=== PATIENT | male | born 1940 | race Caucasian/White ===

== ENCOUNTER 2018-07-10 18:22 | Emergency (ER) | payer MEDICARE, OTHER ==
[2018-07-10] MEDS ORDERED: Ketorolac Tromethamine 30 MG/ML VIAL ONE (18:38)
[2018-07-10] MEDS ORDERED: Morphine 4 MG/ML VIAL ONE (18:38)
[2018-07-10] MEDS ORDERED: Ondansetron PF 4 MG/2 ML Vial ONE (18:38)
[2018-07-10 19:04] LABS: #Eosinphils 0.1 thou/uL (0.0-0.7); #Monocytes 0.6 thou/uL (0.11-0.59); #Neutrophils 4.2 thou/uL (1.40-6.50); %Basophils 0.6 % (0.0-1.0); %Eosinophils 1.2 % (0.0-10.0); %Lymphocytes 16.8 % (21.0-51.0); %Monocytes 10.4 % (0.0-10.0); Hemoglobin 11.5 g/dL (14.0-18.0); Mean Corpuscular HGB CONC 32.7 g/dL (32.0-36.0); Mean Corpuscular Hemoglobin 31.3 pg (27.0-31.0); Mean Corpuscular Volume 95.7 fL (78.0-98.0); Mean Platelet Volume 7.3 fL (7.4-10.4); Platelet Count 241 thou/uL (130-400); RBC Distribution Width 13.6 % (11.5-14.5); Red Blood Cell (RBC) Count 3.67 mill/uL (4.70-6.10); White Blood Cell (WBC) Count 5.9 thou/uL (4.8-10.8)
[2018-07-10 19:16] LABS: ALT (SGPT) 18 U/L (8-55); AST (SGOT) 30 U/L (5-34); Albumin 3.8 g/dL (3.4-4.8); Alkaline Phosphatase 150 U/L (40-150); Anion Gap 11 mmol/L (10-20); BUN (Urea Nitrogen) 19 mg/dL (8.4-25.7); Bilirubin, Total 0.3 mg/dL (0.2-1.2); Calc. Creatinine Clearance 0 mL/min (70-130); Calcium 8.6 mg/dL (7.8-10.44); Carbon Dioxide 22 mmol/L (23-31); Chloride 112 mmol/L (98-107); Estimated GFR-MDRD 70; Globulin 2.7 g/dL (2.4-3.5); Glucose 124 mg/dL (83-110); Lipase 6 U/L (8-78); Potassium 3.3 mmol/L (3.5-5.1); Protein, Total 6.5 g/dL (5.8-8.1); Sodium 142 mmol/L (136-145)
[2018-07-10 19:51] LABS: Bilirubin Negative (Negative); Blood, Urine Large (Negative); Clarity CLOUDY (Clear); Glucose, Urine (Dipstick) 250 mg/dL (Negative); Leukocyte Moderate (Negative); Nitrite Negative (Negative); Protein, Urine (Dipstick) Negative (Neg-Trace); Specific Gravity, Urine 1.018 (1.002-1.036); Urobilinogen 0.2 mg/dL (0.2-1.0)
[2018-07-10 19:52] LABS: Bacteria/HPF 1+ HPF (None Seen); Hyaline Casts/LPF 0-3 HYALINE CAST LPF (0-3 Hyaline); Pathc Cast-AUWi Flag 0.29 (0-2.49); RBC/HPF GREATER THAN 50-TNTC HPF (0-3); Squamous Epithelial 0-3 HPF (0-3)
--- NOTE | 2018-07-10 20:10 | CT ---
CT ABDOMEN AND PELVIS WITHOUT CONTRAST: History: Groin pain. Comparison: CT 07-12-17 FINDINGS: Lung bases are clear. No pericardial effusion. There appears to be gastrectomy changes. There is a 2 mm calculus superior pole right kidney. There is a mild right sided hydroureteronephrosis due to a pa rtially obstructing 2 x 2 mm calculus right ureterovesicular junction. Mild right sided perinephric s tranding. There is a 2 mm interpolar right renal calculus. There is a large calculus inferior left renal collecting system with casting of the calyx measuring 0 .9 x 0.8 cm. No left sided hydroureteronephrosis. There is suture material around the rectum. No dilated loops of small or large bowel. Moderate stool burden transverse colon. Mild tortuosity of the aorta without aneurysmal dilatation. IMPRESSION: 1. Partially obstructed calculus right distal ureter at the vesicular junction measuring 2 x 2 mm cau sing mild right sided hydroureteronephrosis. 2. 8 x 9 mm calculus inferior pole left renal collecting system. 3. Two separate 2 mm calculi within the right renal collecting system within the upper pole and inter polar region. POS: [facility]
== END 2018-07-10 20:28 | disposition home or self-care (01) ==
LOC: ERS 18:22
DX: N13.2 Hydronephrosis with renal and ureteral calculous obstruction (principal)
CPT/HCPCS: 36415; 74176; 80053; 81003; 81015; 83690; 85025; 87077; 87086; 87186; 96374; 96375; J1885; J2270; J2405

== ENCOUNTER 2018-12-13 19:56 | Observation (INO) | payer MEDICARE, OTHER ==
--- NOTE | 2018-12-13 20:35 | RAD ---
EXAM: XR Shoulder Rt 2 View PROVIDED CLINICAL HISTORY: Pain status post injury COMPARISON: None FINDINGS: Comminuted fracture of the right proximal humerus with mildly displaced greater tuberosity and nondis placed metaphyseal region components. Glenohumeral relationship appears normal. Acromial space appears preserved. Visualized right lung field appears clear. IMPRESSION: Right proximal humeral fracture as above.
[2018-12-13] MEDS ORDERED: Ondansetron PF 4 MG/2 ML Vial ONE (21:17)
[2018-12-13] MEDS ORDERED: Morphine 4 MG/ML VIAL ONE ×2 (21:17→22:42)
--- NOTE | 2018-12-13 21:52 | CT ---
EXAM: CT Brain WO Con PROVIDED CLINICAL HISTORY: Fall COMPARISON: None FINDINGS: Prominence of the lateral ventricles presumably on the basis of central volume loss. Retrocerebellar arachnoid cyst. No evidence for intracranial hemorrhage. No shift of the midline structures. The extracranial soft tissues and osseous structures demonstrate no acute findings. IMPRESSION: No evidence for intracranial hemorrhage or mass effect.
--- NOTE | 2018-12-13 21:54 | CT ---
EXAM: CT cervical spine PROVIDED CLINICAL HISTORY: Fall COMPARISON: None FINDINGS: No evidence for fracture or traumatic subluxation. No prevertebral soft tissue swelling apparent. Vi sualized lung apices appear clear. Degenerative changes are noted. 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 IMPRESSION: No evidence for fracture or traumatic subluxation.
--- NOTE | 2018-12-13 22:16 | RAD ---
EXAM: XR Femur Rt 2 View STANDARD PROVIDED CLINICAL HISTORY: Pain FINDINGS: There is no evidence for fracture or other acute osseous abnormality. Alignment appears anatomic. Aviva nt spaces appear preserved. IMPRESSION: No evidence for an acute osseous abnormality. If there is persistent clinical concern, conservative m anagement and follow-up imaging advised.
--- NOTE | 2018-12-13 22:16 | RAD ---
EXAM: XR Hip Rt 2-3 View PROVIDED CLINICAL HISTORY: Pain FINDINGS: There is no evidence for fracture or other acute osseous abnormality. Alignment appears anatomic. Aviva nt spaces appear preserved. IMPRESSION: No evidence for an acute osseous abnormality. If there is persistent clinical concern, conservative m anagement and follow-up imaging advised.
--- NOTE | 2018-12-13 22:17 | RAD ---
EXAM: 3 views right small digit PROVIDED CLINICAL HISTORY: Pain FINDINGS: There is no evidence for fracture or other acute osseous abnormality. Alignment appears anatomic. Aviva nt spaces appear preserved. Degenerative changes are seen. IMPRESSION: No evidence for an acute osseous abnormality. If there is persistent clinical concern, conservative m anagement and follow-up imaging advised.
--- NOTE | 2018-12-13 22:17 | RAD ---
EXAM: XR Elbow Rt 2 View PROVIDED CLINICAL HISTORY: Pain FINDINGS: There is no evidence for fracture or other acute osseous abnormality. Alignment appears anatomic. Aviva nt spaces appear preserved. IMPRESSION: No evidence for an acute osseous abnormality. If there is persistent clinical concern, conservative m anagement and follow-up imaging advised.
[2018-12-13] MEDS ORDERED: HYDROmorphone 0.5 MG/0.5 ML SYRINGE ONE (23:58)
[2018-12-14 00:40] LABS: #Eosinphils 0.1 thou/uL (0.0-0.7); #Lymphocytes 0.8 thou/uL (1.20-3.40); #Monocytes 0.7 thou/uL (0.11-0.59); #Neutrophils 6.9 thou/uL (1.40-6.50); %Basophils 0.5 % (0.0-1.0); %Eosinophils 1.2 % (0.0-10.0); %Lymphocytes 9.6 % (21.0-51.0); %Monocytes 7.8 % (0.0-10.0); Mean Corpuscular HGB CONC 31.5 g/dL (32.0-36.0); Mean Corpuscular Hemoglobin 30.8 pg (27.0-31.0); Mean Corpuscular Volume 97.7 fL (78.0-98.0); Mean Platelet Volume 7.9 fL (7.4-10.4); Platelet Count 247 thou/uL (130-400); RBC Distribution Width 13.5 % (11.5-14.5); Red Blood Cell (RBC) Count 3.91 mill/uL (4.70-6.10); White Blood Cell (WBC) Count 8.5 thou/uL (4.8-10.8)
[2018-12-14 00:43] LABS: INR-International Normal Ratio 1.1; PTT 31.9 SEC (22.9-36.1); Prothrombin Time 14.4 SEC (12.0-14.7)
[2018-12-14 00:47] LABS: ALT (SGPT) 28 U/L (8-55); AST (SGOT) 52 U/L (5-34); Albumin 3.9 g/dL (3.4-4.8); Alkaline Phosphatase 170 U/L (40-150); Anion Gap 12 mmol/L (10-20); BUN (Urea Nitrogen) 17 mg/dL (8.4-25.7); Bilirubin, Total 0.4 mg/dL (0.2-1.2); Calc. Creatinine Clearance 0 mL/min (70-130); Calcium 8.9 mg/dL (7.8-10.44); Carbon Dioxide 22 mmol/L (23-31); Chloride 109 mmol/L (98-107); Estimated GFR-MDRD 65; Globulin 2.9 g/dL (2.4-3.5); Glucose 205 mg/dL (83-110); Potassium 3.7 mmol/L (3.5-5.1); Protein, Total 6.8 g/dL (5.8-8.1); Sodium 139 mmol/L (136-145)
[2018-12-14] MEDS ORDERED: Morphine 2 MG/ML SYRINGE SLOW IVP PRN (01:00)
[2018-12-14] MEDS ORDERED: hydrALAZINE 20 MG/ML VIAL SLOW IVP PRN (01:00)
[2018-12-14] MEDS ORDERED: Promethazine HCl 25 MG/ML VIAL IM PRN (01:00)
[2018-12-14] MEDS ORDERED: Ondansetron PF 4 MG/2 ML Vial IVP PRN (01:00)
[2018-12-14] MEDS ORDERED: Dextrose 50% Abboject 50 ML SYRINGE SLOW IVP PRN (01:00)
[2018-12-14] MEDS ORDERED: Dextrose 5% in Water 1,000 ML IV PRN (01:00)
[2018-12-14] MEDS ORDERED: traMADol HCl 50 MG TAB PO PRN (01:03)
[2018-12-14] MEDS ORDERED: Cyclobenzaprine 10 MG TAB PO PRN (01:03)
[2018-12-14] MEDS ORDERED: Ketorolac Tromethamine 30 MG/ML VIAL ONE (01:17)
[2018-12-14 01:47] LABS: Phosphorus 3.1 mg/dL (2.3-4.7)
[2018-12-14 02:27] VITALS: BMI 20.7
--- NOTE | 2018-12-14 04:50 | HP ---
TRAUMA SURGEON: Dr. Gaona. CONSULTING PHYSICIAN: Dr. Duarte. HISTORY OF PRESENT ILLNESS: The patient is a 78-year-old male who presented to the emergency department after a mechanical fall from a ladder, 8 feet high. The patient reported that the ladder slipped out from underneath him and he fell onto his right side. He did report a loss of consciousness. He does not take any anticoagulation. He was able to get himself up and ambulate back inside the house and subsequently presented to the emergency department. Upon evaluation, it was noted that he had a right proximal humerus fracture. Orthopedic Surgery was consulted, who recommended nonoperative management. Trauma Service was consulted for admission due to pain control as the patient received IV pain medications, but did not receive oral pain medications. Upon my arrival, the patient reported he had some right shoulder pain that he rated at a 4/10. He also complained of right-sided hip and thigh pain. He received CT scans of the head, C-spine as well as x-rays of the right hip, right shoulder, right elbow, right femur, right hand. REVIEW OF SYSTEMS: All additional 10-point review of systems negative except as indicated above. PAST MEDICAL HISTORY: Stomach cancer 3 years ago. No other previous medical history. PAST SURGICAL HISTORY: Colon resection for a hemangioma. He had his stomach also removed 3 years ago due to stomach cancer. He has also had tonsillectomy and cholecystectomy. SOCIAL HISTORY: The patient lives at home with his . He denies tobacco, drug, or alcohol use. MEDICATIONS: Vitamin B12 shots. ALLERGIES: NO KNOWN DRUG ALLERGIES. PHYSICAL EXAMINATION: VITAL SIGNS: Temperature 98.4, pulse 89, respirations 16, oxygen saturation 97% on room air, blood pressure 148/85. PRIMARY SURVEY: Airway intact. Adequate breath sounds bilaterally. 2+ pulses in the bilateral radials, femorals, and DPs. GCS is 15. Gross motor and sensation is intact. No lacerations, bruising, or external bleeding. SECONDARY SURVEY: HEAD: Normocephalic and atraumatic. No gross palpable skull deformities or tenderness. EYES: Pupils are 3 to 2, equal, round, and reactive to light bilaterally. ENT: No hemotympanum. No epistaxis. No septal hematoma. Midface stable to manipulation. No blood in the oropharynx. C-SPINE: No step-offs or deformities. Right lateral neck tenderness, but no C-spine tenderness. C-collar not in place. CHEST: Nontender. No crepitus. No abrasions or ecchymosis noted. Equal chest movement. ABDOMEN: Soft, nontender, and nondistended. PELVIS: Stable to palpation, nontender. No abrasions or ecchymosis. RECTAL: Deferred. GENITOURINARY: Normal external genitalia. No blood at the meatus. EXTREMITIES: Right shoulder swelling with no deformity. No abrasions or ecchymosis noted. Very small punctate wounds to the right 4th and 5th digits. 2+ pulses in the bilateral radials, femorals, and DPs. BACK/SPINE: No step-offs or deformities or tenderness to palpation of the thoracic or lumbar spine. No abrasions or ecchymosis noted. NEUROLOGIC: 5/5 strength in the bilateral precision instrument maker, plantar flexion, and dorsiflexion. Gross normal sensation x4 extremities. LABORATORY FINDINGS: White count 8.5, hemoglobin 12.0, hematocrit 38.2, platelets 247. INR 1.0, sodium 139, potassium 3.7, chloride 109, carbon dioxide 22, BUN 17, creatinine 1.10, glucose 205, total bilirubin 0.5, AST 52, ALT 28. DIAGNOSTIC FINDINGS: CT of the brain demonstrates no evidence of intracranial hemorrhage or mass effect. CT of the C-spine demonstrates no evidence of fracture or traumatic subluxation. X-ray of the right hip demonstrates no evidence of acute osseous abnormality. There is a persistent clinical concern, conservative management, and followup imaging advised. X-ray of the right shoulder demonstrates right proximal humeral fracture. X-ray of the right elbow demonstrates no evidence of acute osseous abnormalities. X-ray of the right femur demonstrates no evidence for acute osseous abnormalities. X-rays of the right sided fingers demonstrate no evidence of acute osseous abnormalities. ASSESSMENT: 1. Status post mechanical fall from 8 feet with loss of consciousness. 2. Right proximal humerus fracture. 3. Right-sided neck pain, likely whiplash. 4. Acute traumatic pain. 5. History of stomach cancer. PLAN: The patient will be admitted to the Trauma Service under observation. He will receive p.o. pain control on the floor. He is to receive 30 of Toradol IV in the emergency department as well as a sling to his right upper extremity. Chest x-ray completed in the emergency department demonstrated no hemopneumothorax, but final radiologist's report will be followed up. We will also follow up serum lactic acid, magnesium, and phosphorus as well. The patient to work with Physical and Occupational Therapy tomorrow. at bedside reported she did not feel comfortable taking the patient home tonight as she was concerned that she would not be able to get him into the house or help him to the bathroom, and they felt more comfortable being admitted and being evaluated by the Orthopedic Surgery team and Physical Therapy tomorrow. The patient was discussed with Dr. Gaona before this dictation. Job ID: [id number]
[2018-12-14] MEDS: traMADol HCl 50 MG TAB PO SCH ×2 (05:03→11:37)
[2018-12-14] MEDS: Ibuprofen 600 MG TAB PO SCH ×2 (05:03→13:27)
[2018-12-14] MEDS: Acetaminophen 500 MG TAB PO SCH ×2 (05:03→11:37)
--- NOTE | 2018-12-14 08:17 | RAD ---
PORTABLE CHEST 1 VIEW: Date: 12/14/18 Time: 0017 hours HISTORY: Fall, right shoulder pain. FINDINGS/IMPRESSION: There is a right-sided Port-A-Cath with tip in the projection of the SVC. The heart size is normal. T he aorta is tortuous. No focal areas of consolidation, pneumothoraces, or pleural effusions are seen. There is a fracture involving the right proximal humerus. POS: [facility]
[2018-12-14] MEDS: Gabapentin 100 MG CAP PO SCH ×2 (08:34→14:23)
[2018-12-14] MEDS ORDERED: Polyethylene Glycol 3350 17 GM Packet PO SCH (09:00)
[2018-12-14] MEDS ORDERED: Famotidine 20 MG TAB PO SCH (09:00)
[2018-12-14] MEDS ORDERED: Senokot S 8.6-50 MG TAB PO SCH (09:00)
--- NOTE | 2018-12-14 10:50 | CON ---
DATE OF CONSULTATION: CHIEF COMPLAINT: Right shoulder pain. HISTORY OF PRESENT ILLNESS: Mr. Phillips is a 78-year-old male, who was working on his garage door yesterday. He was approximately 8 feet up on the ladder. He lost his balance and fell. He landed on his right side. He sustained a fracture of the right proximal humerus. He did not strike his head. He did not lose consciousness. He presented to the emergency department. He has been admitted for pain control and to mobilize. Orthopedics was consulted regarding his right proximal humerus fracture. PAST MEDICAL HISTORY: Gastric cancer, status post resection. PAST SURGICAL HISTORY: Gastric resection, tonsillectomy, cholecystectomy, and colon resection. SOCIAL HISTORY: The patient denies tobacco, alcohol, or drug use. He stays active. He catches [employer] to make money and for activity. MEDICATIONS: Vitamin B12. ALLERGIES: NO KNOWN DRUG ALLERGIES. PHYSICAL EXAMINATION: VITAL SIGNS: Temperature is 98.2, pulse is 81, respiratory rate 14, oxygen saturation 97%, and blood pressure is 127/74. GENERAL: He is alert, lying supine, in no apparent distress. HEENT: Normocephalic, atraumatic. RESPIRATORY: Breathing comfortably. ABDOMEN: Soft, nontender, and nondistended. MUSCULOSKELETAL: The patient's right upper extremity has swelling at the shoulder. There is no ecchymosis. No skin laceration. He is neurovascularly intact in the upper extremity. Palpable radial pulse. Pain with shoulder motion. Weakness in the shoulder as well. IMAGING DATA: X-rays of the right shoulder demonstrate a proximal humerus fracture, which is three-part. It is minimally displaced. Right femur, elbow, and hand x-rays on the right side were also reviewed, which are negative. IMPRESSION: Right proximal humerus fracture after a fall in an elderly male. PLAN: At this point, the patient can be treated nonoperatively. He will continue a sling for comfort on the right arm. He can mobilize out of bed as tolerated. I would like to see him back in the Orthopedic Clinic in 2 weeks for repeat x-ray of the shoulder to evaluate his fracture position. He can eat and drink as tolerated. No plans for surgical intervention. Job ID: [id number]
[2018-12-14] MEDS ORDERED: PHOS-NAK 1 PKT PACK PO SCH (13:15)
--- NOTE | 2018-12-14 15:50 | DIS ---
DATE OF ADMISSION: 12/14/2018 DATE OF DISCHARGE: 12/14/2018 CONSULTING PHYSICIAN: Dr. Duarte of Orthopedic Surgery. PROCEDURES: None. HOSPITAL COURSE: The patient is a 78 year old male, who presented to the emergency department after mechanical fall 8 feet from a ladder. He did report loss of consciousness, but does not take any anticoagulation and had a right proximal humeral fracture and a right neck strain. His fractures are nonoperative and was stabilized with a sling. The patient was admitted to the trauma service for pain control and physical therapy. At the time of discharge, the patient's pain was well controlled. He was tolerating a regular diet. He was ambulating without assistance, who was voiding without issues. ADMISSION DIAGNOSES: 1. Mechanical fall from 8 feet. 2. Right proximal humerus fracture. 3. Right neck strain. DISCHARGE DIAGNOSES: 1. Mechanical fall from 8 feet. 2. Right proximal humerus fracture. 3. Right neck strain. DISCHARGE DISPOSITION: Home. DISCHARGE CONDITION: Satisfactory. PHYSICAL EXAMINATION: VITAL SIGNS: Temperature 98.6, pulse 75, respirations 16, oxygen saturation 99 % on room air, blood pressure 136/80. GENERAL: Well-appearing elderly male, sitting up in bed with no signs of acute distress. PULMONARY: Equal chest rise and fall. Clear breath sounds bilaterally. No signs of acute respiratory distress. CARDIAC: Regular rate and rhythm. No murmurs, gallops, or rubs. GASTROINTESTINAL: Soft, nontender, nondistended. EXTREMITIES: 2+ pulses in all extremities. No significant swelling noted. Gross motor and sensation are intact. Right upper extremity in sling with some right shoulder swelling. NEUROLOGIC: GCS is 15. Gross motor and sensation are intact. Pupils equal, round, reactive to light bilaterally. DISCHARGE INSTRUCTIONS: The patient is to be discharged home nonweightbearing right upper extremity. Activity as tolerated. Regular diet. He is to use a cane as needed and he is to wear his right upper extremity sling at all times. DISCHARGE MEDICATIONS: Include: 1. Gabapentin. 2. Tramadol. 3. Tylenol. 4. Ibuprofen. 5. Fish oil. 6. Multivitamins. FOLLOWUP APPOINTMENTS: The patient is to follow up with Dr. Duarte in 2 weeks with x-rays. No followup is needed with Dr. Barnes. This is merely a summary of the patient's hospitalization. For full details, please see his medical record in its entirety. Job ID: [id number] [id number]
[2018-12-14 16:13] VITALS: BP 116/68; TEMP 98.1
== END 2018-12-14 16:45 | disposition home or self-care (01) ==
LOC: ERS 19:56 → INTOOBSV 12-14 01:44 → SURG B 12-14 01:44
PROVIDERS: ADMIT Surgery; ATTEND Surgery
DX: S42.251A Displaced fracture of greater tuberosity of right humerus, initial encounter for closed fracture (principal); S49.001A Unspecified physeal fracture of upper end of humerus, right arm, initial encounter for closed fracture; S06.9X9A Unspecified intracranial injury with loss of consciousness of unspecified duration, initial encounter; S16.1XXA Strain of muscle, fascia and tendon at neck level, initial encounter; M54.2 Cervicalgia; G89.11 Acute pain due to trauma; Z85.028 Personal history of other malignant neoplasm of stomach; Z90.49 Acquired absence of other specified parts of digestive tract; Z90.3 Acquired absence of stomach [part of]; Z98.890 Other specified postprocedural states; W11.XXXA Fall on and from ladder, initial encounter
CPT/HCPCS: 70450; 71045; 72125; 73030; 73070; 73140; 73502; 73552; 80053; 83605; 83735; 84100; 85025; 85610; 85730; 93005; 96374; 96375; 96376; 97116; 99285; G0378 ×2; 36415; J1170; J1885; J2270; J2405

== ENCOUNTER 2024-11-27 07:18 | Day surgery (SDC) | payer OTHER ==
[2024-11-24 10:26] VITALS: BMI 19.0
[2024-11-27] MEDS ORDERED: Ampicillin 2 GM VIAL ONE ×2 (07:42)
[2024-11-27] MEDS ORDERED: Sodium Chloride 0.9% 100 ML ONE (07:42)
[2024-11-27] MEDS ORDERED: LevoFLOXacin D5W 500 mg (100 mL) BAG ONE (07:42)
[2024-11-27] MEDS ORDERED: Iopamidol 15 ML ONE (08:45)
[2024-11-27] MEDS ORDERED: Lidocaine 1% PF 5 ML VIAL ONE (08:56)
[2024-11-27] MEDS ORDERED: Ondansetron PF 4 MG/2 ML Vial ONE (08:56)
[2024-11-27] MEDS ORDERED: Rocuronium Bromide 10 MG/ML (10ML VIAL) ONE (08:56)
[2024-11-27] MEDS ORDERED: PROPOFOL 20 ML ONE (08:56)
[2024-11-27] MEDS ORDERED: fentaNYL 50 mcg/mL 1 mL Vial ONE (10:04)
[2024-11-27] MEDS ORDERED: PHENYLEPHRINE-NS 100 MCG/ML 10 ML SYRINGE ONE (10:59)
[2024-11-27] MEDS ORDERED: SUGAMMADEX SODIUM 200 MG/2 ML VIAL ONE (11:04)
[2024-11-27] MEDS ORDERED: fentaNYL PF 100 MCG/2 ML SYRINGE ONE (11:24)
[2024-11-27] MEDS ORDERED: Oxybutynin 5 MG TAB ONE (11:48)
[2024-11-27] MEDS ORDERED: Phenazopyridine HCl 100 MG TAB ONE (11:48)
[2024-12-06 18:14] LABS: CA Oxalate Monohydrate 100 % (.); Color Brown (.); Stone Weight 279 mg (.)
== END 2024-11-27 14:20 | disposition home or self-care (01) ==
LOC: SDC 07:18
PROVIDERS: ATTEND Urology
PROC: 0TC18ZZ Extirpation of Matter from Left Kidney, Via Natural or Artificial Opening Endoscopic (ICD-10-PCS; principal; 2024-11-27)
PROC: 0TC78ZZ Extirpation of Matter from Left Ureter, Via Natural or Artificial Opening Endoscopic (ICD-10-PCS; 2024-11-27)
PROC: 0T778DZ Dilation of Left Ureter with Intraluminal Device, Via Natural or Artificial Opening Endoscopic (ICD-10-PCS; 2024-11-27)
DX: N20.2 Calculus of kidney with calculus of ureter (principal); N35.919 Unspecified urethral stricture, male, unspecified site; N40.1 Benign prostatic hyperplasia with lower urinary tract symptoms; R35.0 Frequency of micturition; E11.22 Type 2 diabetes mellitus with diabetic chronic kidney disease; N18.31 Chronic kidney disease, stage 3a; H91.90 Unspecified hearing loss, unspecified ear; Z85.028 Personal history of other malignant neoplasm of stomach; Z90.49 Acquired absence of other specified parts of digestive tract
CPT/HCPCS: 74420; 82365; A4333; A4340; C1747; C1758; C1769 ×2; C2617; C9761; J0290; J1956; J2405; J2704; J3010; Q9967; 88300

== ENCOUNTER 2025-05-29 14:05 | Outpatient (CLI) | payer OTHER | END 2025-05-29 14:06 | disposition home or self-care (01) | LOC: ULT 14:05 | PROVIDERS: ATTEND Urology | DX: E11.22 Type 2 diabetes mellitus with diabetic chronic kidney disease (principal); N18.9 Chronic kidney disease, unspecified; N20.0 Calculus of kidney; N40.1 Benign prostatic hyperplasia with lower urinary tract symptoms; R39.14 Feeling of incomplete bladder emptying; N35.916 Unspecified urethral stricture, male, overlapping sites; R19.5 Other fecal abnormalities | CPT/HCPCS: 71046; 74018; 76770 ==